=== PATIENT | male | born 1985 | race Two or more races ===

== ENCOUNTER → 2016-10-27 | Outpatient (REF) | payer OTHER | LOC: M SMT 10:45 | PROVIDERS: ATTEND Urology | DX: Z30.2 Encounter for sterilization (principal) ==

== ENCOUNTER → 2016-12-10 | Outpatient (REF) | payer OTHER ==
[2016-12-10 09:56] LABS: IMMOTILE SPERM ABSENT (ABSENT); MOTILE SPERM ABSENT (ABSENT)
[2016-12-10 09:57] LABS: IMMMOTILE SPERM CENTRIFUGED ABSENT (ABSENT); MOTILE SPERM CENTRIFUGED ABSENT (ABSENT)
== END ==
LOC: M LAB REF 09:10
PROVIDERS: ATTEND Urology
DX: Z30.2 Encounter for sterilization (principal)